=== PATIENT | female | born 1940 | race Caucasian/White ===

== ENCOUNTER 2020-05-02 11:29 | Inpatient (IN) ==
[2020-05-02] MEDS ORDERED: 0.9 % Sodium Chloride 1,000 ML IV ONE (11:48)
[2020-05-02 12:07] LABS: Basophils % 0.2 %; Eosinophils % 0.3 %; Hematocrit 32.6 % (35.3-44.9); Immature Granulocytes % 0.3 % (0-4); Lymphocytes # 1.1 K/mcL (0.6-4.6); Lymphocytes % 9.1 %; Mean Corpuscular HGB Conc 27.6 g/dL (31.6-35.5); Mean Corpuscular Hemoglobin 21.2 pg (28.0-33.3); Mean Corpuscular Volume 76.9 fL (83.0-100.0); Mean Platelet Volume 10.8 fL (9.4-12.4); Monocytes # 1.5 K/mcL (0.0-1.3); Monocytes % 12.3 %; Neutrophils # 9.2 K/mcL (1.6-8.9); Platelet Count 302 K/mcL (140-400); Red Blood Count 4.24 M/mcL (3.82-4.97); Red Cell Distribution Width 16.7 % (11.5-14.5); Segmented Neutrophils % 77.8 %; White Blood Count 11.8 K/mcL (4.3-11.1)
[2020-05-02 12:13] LABS: INR 1.1; Prothrombin Time 12.1 Seconds (9.4-12.1)
[2020-05-02 12:21] LABS: Alanine Aminotransferase 9 Units/L (7-52); Albumin 3.5 g/dL (3.5-5.7); Alkaline Phosphatase 58 Units/L (34-104); Aspartate Amino Transferase 9 Units/L (13-39); BUN/Creatinine Ratio 26 (6-26); Bilirubin,Total 0.2 mg/dL (0.3-1.0); Blood Urea Nitrogen 15 mg/dL (8-23); Carbon Dioxide 36 mEq/L (23-29); Chloride 94 mEq/L (98-107); Globulin 3.6 g/dL (2.4-3.5); Glucose 289 mg/dL (70-105); Magnesium 1.6 mg/dL (1.6-2.6); Osmolality,Calculated 293 (280-300); Potassium 4.4 mEq/L (3.5-5.1); Sodium 136 mEq/L (136-145); Total Protein 7.1 g/dL (6.4-8.9); eGFR For African Americans > 60 (> 60); eGFR For Non-African Americans > 60 (> 60)
[2020-05-02 12:23] LABS: Bilirubin,Urine Negative (Negative); Blood,Urine Negative (Negative); Clarity,Urine Clear (Clear); Color,Urine Yellow (Yellow); Glucose,Urine (UA) >=1000 mg/dL (Normal); Ketones,Urine Negative (Negative); Leukocyte Esterase,Urine Negative (Negative); Nitrite,Urine Negative (Negative); Protein,Urine 30 mg/dL (Neg-Trace); Specific Gravity,Urine >= 1.030 (1.010-1.025); Urobilinogen,Urine Normal (Normal)
[2020-05-02 12:24] LABS: Troponin I < 0.03 ng/mL (< 0.04)
[2020-05-02 12:37] LABS: Amorphous Sediment,Urine Moderate per hpf (None-Few); Bacteria,Urine Few per hpf (None-Few); Mucus,Urine Many per lpf (None-Few); Squamous Epithelial Cell,Urine Moderate per hpf (None-Few); WBC,Urine 0-3 per hpf (0-3)
[2020-05-02 12:42] LABS: Hypochromasia Present (Not Present); Microcytosis Present (Not Present)
[2020-05-02] MEDS ORDERED: Isovue-370 500 ML BOTTLE IVP ONE (12:45)
[2020-05-02] MEDS ORDERED: Furosemide 40 MG/4 ML VIAL IVP ONE (13:45)
[2020-05-02] MEDS ORDERED: Naloxone 0.4 MG/ML INJ IVP PRN (16:43)
[2020-05-02] MEDS ORDERED: Ondansetron 4 MG/2 ML VIAL IVP PRN (16:43)
[2020-05-02] MEDS ORDERED: *HR* Dextrose 50 % in Water (Vial) 50 ML VIAL IVP PRN (17:00)
[2020-05-02] MEDS ORDERED: Dextrose Gel 15 GM/37.5 ML TUBE PO PRN ×2 (17:00)
[2020-05-02] MEDS ORDERED: D5% in Water 1,000 ML IVC PRN (17:00)
[2020-05-02] MEDS ORDERED: Perflutren Lipid Microsphere 1.3 ML in 0.9 % Sodium Chloride 8.7 ML IVP PRN (17:07)
[2020-05-02] MEDS: cefTRIAXone 1,000 MG in 0.9 % Sodium Chloride Mini Bag 100 ML IVPB SCH (17:10)
[2020-05-02] MEDS: Insulin LISPRO 300 UNITS/3 ML VIAL SQ SCH (18:12)
[2020-05-02] MEDS: Azithromycin 500 MG in 0.9 % Sodium Chloride 250 ML IVPB SCH (18:13)
[2020-05-02] MEDS: Furosemide 20 MG/2 ML VIAL IVP SCH (18:16)
[2020-05-02] MEDS: Ipratropium/Albuterol Neb 3 ML IH PRN (19:09)
[2020-05-02] MEDS: Budesonide/Formoterol 160/4.5 1 PUFF INH IH SCH (19:10)
[2020-05-02 21:55] LABS: Estimated Average Glucose 214 mg/dl
[2020-05-03 06:51] LABS: Basophils % 0.2 %; Eosinophils # 0.1 K/mcL (0.0-0.6); Eosinophils % 0.9 %; Hematocrit 29.3 % (35.3-44.9); Hemoglobin 8.1 g/dL (11.5-15.4); Immature Granulocytes % 0.3 % (0-4); Lymphocytes # 1.5 K/mcL (0.6-4.6); Lymphocytes % 15.7 %; Mean Corpuscular HGB Conc 27.6 g/dL (31.6-35.5); Mean Corpuscular Hemoglobin 21.4 pg (28.0-33.3); Mean Corpuscular Volume 77.3 fL (83.0-100.0); Mean Platelet Volume 11.5 fL (9.4-12.4); Monocytes # 1.3 K/mcL (0.0-1.3); Monocytes % 13.5 %; Neutrophils # 6.7 K/mcL (1.6-8.9); Platelet Count 265 K/mcL (140-400); Red Blood Count 3.79 M/mcL (3.82-4.97); Red Cell Distribution Width 16.5 % (11.5-14.5); Segmented Neutrophils % 69.4 %; White Blood Count 9.7 K/mcL (4.3-11.1)
[2020-05-03 07:13] LABS: Alanine Aminotransferase 7 Units/L (7-52); Albumin 2.9 g/dL (3.5-5.7); Albumin/Globulin Ratio 0.9 (1.1-2.2); Alkaline Phosphatase 53 Units/L (34-104); Aspartate Amino Transferase 9 Units/L (13-39); BUN/Creatinine Ratio 28 (6-26); Bilirubin,Total 0.2 mg/dL (0.3-1.0); Blood Urea Nitrogen 13 mg/dL (8-23); Calcium 8.5 mg/dL (8.6-10.3); Carbon Dioxide 38 mEq/L (23-29); Chloride 96 mEq/L (98-107); Globulin 3.4 g/dL (2.4-3.5); Glucose 172 mg/dL (70-105); Magnesium 1.5 mg/dL (1.6-2.6); Osmolality,Calculated 292 (280-300); Sodium 139 mEq/L (136-145); Total Protein 6.3 g/dL (6.4-8.9); eGFR For African Americans > 60 (> 60); eGFR For Non-African Americans > 60 (> 60)
[2020-05-03 07:45] LABS: Hypochromasia Present (Not Present); Microcytosis Present (Not Present)
[2020-05-03] MEDS: Insulin LISPRO 300 UNITS/3 ML VIAL SQ SCH ×3 (09:00→17:17)
[2020-05-03] MEDS: Furosemide 20 MG/2 ML VIAL IVP SCH ×2 (09:00→16:18)
[2020-05-03] MEDS: MethylPREDNISolone 40 MG/ML VIAL IVP SCH ×2 (09:02→21:57)
[2020-05-03] MEDS: Budesonide/Formoterol 160/4.5 1 PUFF INH IH SCH ×2 (09:16→22:54)
[2020-05-03] MEDS: Ipratropium/Albuterol Neb 3 ML IH PRN (09:16)
[2020-05-03] MEDS: cefTRIAXone 1,000 MG in 0.9 % Sodium Chloride Mini Bag 100 ML IVPB SCH (16:21)
[2020-05-03] MEDS: Azithromycin 500 MG in 0.9 % Sodium Chloride 250 ML IVPB SCH (16:23)
[2020-05-03] MEDS: MOM Conc 10 ML UD.LIQ PO PRN (17:17)
[2020-05-04] MEDS: Furosemide 20 MG/2 ML VIAL IVP SCH (08:20)
[2020-05-04] MEDS: MethylPREDNISolone 40 MG/ML VIAL IVP SCH ×2 (08:20→21:10)
[2020-05-04] MEDS: Insulin LISPRO 300 UNITS/3 ML VIAL SQ SCH ×3 (08:21→16:51)
[2020-05-04 08:53] LABS: Hemoglobin 8.7 g/dL (11.5-15.4); Mean Corpuscular HGB Conc 27.2 g/dL (31.6-35.5); Mean Corpuscular Volume 77.3 fL (83.0-100.0); Mean Platelet Volume 10.8 fL (9.4-12.4); Platelet Count 322 K/mcL (140-400); Red Blood Count 4.14 M/mcL (3.82-4.97); Red Cell Distribution Width 16.5 % (11.5-14.5)
[2020-05-04] MEDS: Budesonide/Formoterol 160/4.5 1 PUFF INH IH SCH ×2 (09:06→22:56)
[2020-05-04 09:18] LABS: BUN/Creatinine Ratio 25 (6-26); Blood Urea Nitrogen 14 mg/dL (8-23); Calcium 8.9 mg/dL (8.6-10.3); Carbon Dioxide 43 mEq/L (23-29); Chloride 94 mEq/L (98-107); Glucose 261 mg/dL (70-105); Osmolality,Calculated 302 (280-300); Potassium 4.4 mEq/L (3.5-5.1); Sodium 141 mEq/L (136-145); eGFR For African Americans > 60 (> 60); eGFR For Non-African Americans > 60 (> 60)
[2020-05-04] MEDS: Acetaminophen 325 MG TABLET PO PRN (16:49)
[2020-05-04] MEDS: cefTRIAXone 1,000 MG in 0.9 % Sodium Chloride Mini Bag 100 ML IVPB SCH (16:50)
[2020-05-04] MEDS: Azithromycin 500 MG in 0.9 % Sodium Chloride 250 ML IVPB SCH (16:51)
[2020-05-04] MEDS: acetaZOLAMIDE 250 MG TABLET PO SCH (21:09)
[2020-05-05 06:33] LABS: Hemoglobin 8.4 g/dL (11.5-15.4); Mean Corpuscular HGB Conc 27.1 g/dL (31.6-35.5); Mean Corpuscular Hemoglobin 21.2 pg (28.0-33.3); Mean Corpuscular Volume 78.3 fL (83.0-100.0); Mean Platelet Volume 11.7 fL (9.4-12.4); Platelet Count 309 K/mcL (140-400); Red Blood Count 3.96 M/mcL (3.82-4.97); Red Cell Distribution Width 16.7 % (11.5-14.5); White Blood Count 10.4 K/mcL (4.3-11.1)
[2020-05-05 07:32] LABS: BUN/Creatinine Ratio 28 (6-26); Blood Urea Nitrogen 19 mg/dL (8-23); Carbon Dioxide 39 mEq/L (23-29); Chloride 97 mEq/L (98-107); Glucose 300 mg/dL (70-105); Osmolality,Calculated 303 (280-300); Potassium 4.8 mEq/L (3.5-5.1); Sodium 140 mEq/L (136-145); eGFR For African Americans > 60 (> 60); eGFR For Non-African Americans > 60 (> 60)
[2020-05-05] MEDS: MOM Conc 10 ML UD.LIQ PO PRN (08:00)
[2020-05-05] MEDS: MethylPREDNISolone 40 MG/ML VIAL IVP SCH (08:00)
[2020-05-05] MEDS: Acetaminophen 325 MG TABLET PO PRN (08:00)
[2020-05-05] MEDS: acetaZOLAMIDE 250 MG TABLET PO SCH ×2 (08:01→21:56)
[2020-05-05] MEDS: Insulin LISPRO 300 UNITS/3 ML VIAL SQ SCH ×4 (08:06→16:54)
[2020-05-05] MEDS ORDERED: Insulin DETEMIR 100 UNIT/ML X5UNITS SQ SCH (09:00)
[2020-05-05] MEDS: Budesonide/Formoterol 160/4.5 1 PUFF INH IH SCH ×2 (09:32→20:26)
[2020-05-05] MEDS: cefTRIAXone 1,000 MG in 0.9 % Sodium Chloride Mini Bag 100 ML IVPB SCH (17:06)
[2020-05-05] MEDS: Azithromycin 500 MG in 0.9 % Sodium Chloride 250 ML IVPB SCH (17:47)
[2020-05-05] MEDS: Insulin DETEMIR 100 UNIT/ML X5UNITS SQ SCH (21:56)
[2020-05-06 06:52] VITALS: BP 113/66
[2020-05-06] MEDS: Insulin LISPRO 300 UNITS/3 ML VIAL SQ SCH ×2 (07:38→11:14)
[2020-05-06] MEDS: MOM Conc 10 ML UD.LIQ PO PRN (07:43)
[2020-05-06] MEDS: acetaZOLAMIDE 250 MG TABLET PO SCH (07:43)
[2020-05-06 09:04] LABS: BUN/Creatinine Ratio 34 (6-26); Blood Urea Nitrogen 25 mg/dL (8-23); Calcium 9.5 mg/dL (8.6-10.3); Carbon Dioxide 39 mEq/L (23-29); Chloride 100 mEq/L (98-107); Glucose 149 mg/dL (70-105); Osmolality,Calculated 301 (280-300); Sodium 142 mEq/L (136-145); eGFR For African Americans > 60 (> 60); eGFR For Non-African Americans > 60 (> 60)
[2020-05-06] MEDS: Budesonide/Formoterol 160/4.5 1 PUFF INH IH SCH (10:21)
[2020-05-06] MEDS: Insulin DETEMIR 100 UNIT/ML X5UNITS SQ SCH (10:29)
== END 2020-05-06 12:55 | disposition other institution (70) | DRG 291 ==
LOC: EMEROOPIK 11:29 → INPPIK 11:29
PROVIDERS: ADMIT Family Medicine; ATTEND Family Medicine

== ENCOUNTER 2020-05-06 12:01 | Inpatient (IN) ==
[2020-05-06] MEDS ORDERED: *HR* Dextrose 50 % in Water (Vial) 50 ML VIAL IVP PRN (12:15)
[2020-05-06] MEDS ORDERED: D5% in Water 1,000 ML IVC PRN (12:15)
[2020-05-06] MEDS ORDERED: Dextrose Gel 15 GM/37.5 ML TUBE PO PRN ×2 (12:15)
[2020-05-06] MEDS ORDERED: Acetaminophen 325 MG TABLET PO PRN (12:17)
[2020-05-06] MEDS ORDERED: Ipratropium/Albuterol Neb 3 ML IH PRN (12:19)
[2020-05-06] MEDS ORDERED: MOM Conc 10 ML UD.LIQ PO PRN (12:22)
[2020-05-06] MEDS ORDERED: Ziprasidone 10 MG in Water for inj. (sterile) 0.5 ML IM ONE (14:23)
[2020-05-06] MEDS: Insulin LISPRO 300 UNITS/3 ML VIAL SQ SCH ×2 (16:53→20:24)
[2020-05-06] MEDS: Insulin DETEMIR 100 UNIT/ML X5UNITS SQ SCH (20:21)
[2020-05-06] MEDS: acetaZOLAMIDE 250 MG TABLET PO SCH (20:21)
[2020-05-06] MEDS: Budesonide/Formoterol 160/4.5 1 PUFF INH IH SCH (22:29)
[2020-05-07 07:18] LABS: Basophils % 0.3 %; Eosinophils # 0.2 K/mcL (0.0-0.6); Eosinophils % 1.3 %; Hematocrit 29.5 % (35.3-44.9); Immature Granulocytes % 0.3 % (0-4); Lymphocytes # 1.9 K/mcL (0.6-4.6); Lymphocytes % 16.1 %; Mean Corpuscular HGB Conc 27.1 g/dL (31.6-35.5); Mean Corpuscular Hemoglobin 21.2 pg (28.0-33.3); Mean Corpuscular Volume 78.2 fL (83.0-100.0); Mean Platelet Volume 10.9 fL (9.4-12.4); Monocytes # 1.6 K/mcL (0.0-1.3); Monocytes % 13.7 %; Neutrophils # 7.9 K/mcL (1.6-8.9); Platelet Count 288 K/mcL (140-400); Red Blood Count 3.77 M/mcL (3.82-4.97); Red Cell Distribution Width 16.9 % (11.5-14.5); Segmented Neutrophils % 68.3 %; White Blood Count 11.5 K/mcL (4.3-11.1)
[2020-05-07 07:40] LABS: BUN/Creatinine Ratio 41 (6-26); Blood Urea Nitrogen 26 mg/dL (8-23); Calcium 8.8 mg/dL (8.6-10.3); Carbon Dioxide 34 mEq/L (23-29); Chloride 102 mEq/L (98-107); Glucose 158 mg/dL (70-105); Osmolality,Calculated 300 (280-300); Potassium 4.1 mEq/L (3.5-5.1); Sodium 141 mEq/L (136-145); eGFR For African Americans > 60 (> 60); eGFR For Non-African Americans > 60 (> 60)
[2020-05-07] MEDS: acetaZOLAMIDE 250 MG TABLET PO SCH (07:49)
[2020-05-07] MEDS: Insulin LISPRO 300 UNITS/3 ML VIAL SQ SCH ×4 (07:54→20:08)
[2020-05-07 08:17] LABS: Hypochromasia Present (Not Present); Microcytosis Present (Not Present)
[2020-05-07] MEDS ORDERED: Azithromycin 250 MG TABLET PO SCH (09:00)
[2020-05-07] MEDS: Insulin DETEMIR 100 UNIT/ML X5UNITS SQ SCH ×2 (09:17→20:10)
[2020-05-07] MEDS: Budesonide/Formoterol 160/4.5 1 PUFF INH IH SCH ×2 (10:30→22:22)
[2020-05-07] MEDS: predniSONE 20 MG TABLET PO SCH (17:19)
[2020-05-08] MEDS: Budesonide/Formoterol 160/4.5 1 PUFF INH IH SCH ×2 (09:15→22:39)
[2020-05-08] MEDS: Insulin LISPRO 300 UNITS/3 ML VIAL SQ SCH ×4 (12:13→21:02)
[2020-05-08] MEDS: *HR* Pioglitazone 15 MG TABLET PO SCH ×2 (12:15→12:21)
[2020-05-08] MEDS: *HR* Metformin 500 MG TABLET PO SCH ×2 (12:15→12:20)
[2020-05-08] MEDS: Metoprolol XL (24 HR) Succ 25 MG TAB.ER.24H PO SCH (12:21)
[2020-05-08] MEDS: Aspirin Enteric Coated 81 MG Tablet PO SCH (12:21)
[2020-05-08] MEDS: Insulin DETEMIR 100 UNIT/ML X5UNITS SQ SCH ×2 (12:21→21:01)
[2020-05-08] MEDS: predniSONE 20 MG TABLET PO SCH (18:07)
[2020-05-08] MEDS ORDERED: GuaiFENesin/Dextromethorphan TABLET PO PRN (18:10)
[2020-05-09] MEDS: Insulin LISPRO 300 UNITS/3 ML VIAL SQ SCH ×4 (09:04→20:03)
[2020-05-09] MEDS: *HR* Metformin 500 MG TABLET PO SCH ×2 (09:07→16:43)
[2020-05-09] MEDS: Aspirin Enteric Coated 81 MG Tablet PO SCH (09:08)
[2020-05-09] MEDS: Metoprolol XL (24 HR) Succ 25 MG TAB.ER.24H PO SCH (09:08)
[2020-05-09] MEDS: predniSONE 20 MG TABLET PO SCH (09:08)
[2020-05-09] MEDS: *HR* Pioglitazone 15 MG TABLET PO SCH (09:09)
[2020-05-09] MEDS: Insulin DETEMIR 100 UNIT/ML X5UNITS SQ SCH ×2 (09:12→20:06)
[2020-05-09] MEDS: Budesonide/Formoterol 160/4.5 1 PUFF INH IH SCH ×2 (09:53→21:56)
[2020-05-10 07:09] VITALS: BP 103/58
[2020-05-10] MEDS: Insulin LISPRO 300 UNITS/3 ML VIAL SQ SCH (07:24)
[2020-05-10] MEDS: *HR* Metformin 500 MG TABLET PO SCH (09:11)
[2020-05-10] MEDS: predniSONE 20 MG TABLET PO SCH (09:12)
[2020-05-10] MEDS: Metoprolol XL (24 HR) Succ 25 MG TAB.ER.24H PO SCH (09:12)
[2020-05-10] MEDS: *HR* Pioglitazone 15 MG TABLET PO SCH (09:12)
[2020-05-10] MEDS: Aspirin Enteric Coated 81 MG Tablet PO SCH (09:13)
[2020-05-10] MEDS: Insulin DETEMIR 100 UNIT/ML X5UNITS SQ SCH (09:14)
[2020-05-10] MEDS: Budesonide/Formoterol 160/4.5 1 PUFF INH IH SCH (10:28)
[2020-05-11] MEDS ORDERED: predniSONE 10 MG TABLET PO SCH (09:00)
== END 2020-05-10 12:05 | disposition home health service (06) | DRG 190 ==
LOC: INPPIK 13:01
PROVIDERS: ADMIT Family Medicine; ATTEND Family Medicine

== ENCOUNTER 2020-09-12 01:35 | Inpatient (IN) ==
[2020-09-12] MEDS ORDERED: Furosemide 40 MG/4 ML VIAL IVP ONE (01:51)
[2020-09-12 02:19] LABS: Prothrombin Time 11.4 Seconds (9.4-12.1)
[2020-09-12 02:22] LABS: Activated Partial Thrombo Time 27.7 Seconds (26.0-36.0)
[2020-09-12 02:24] LABS: Bilirubin,Urine Negative (Negative); Blood,Urine Negative (Negative); Clarity,Urine Clear (Clear); Color,Urine Yellow (Yellow); Glucose,Urine (UA) 100 mg/dL (Normal); Ketones,Urine Trace mg/dL (Negative); Leukocyte Esterase,Urine Negative (Negative); Nitrite,Urine Negative (Negative); Protein,Urine Negative (Neg-Trace); Specific Gravity,Urine 1.025 (1.010-1.025); Urobilinogen,Urine Normal (Normal)
[2020-09-12 02:34] LABS: Alanine Aminotransferase 8 Units/L (7-52); Albumin 3.1 g/dL (3.5-5.7); Alkaline Phosphatase 67 Units/L (34-104); Aspartate Amino Transferase 9 Units/L (13-39); BUN/Creatinine Ratio 38 (6-26); Bilirubin,Indirect 0.2 mg/dL (0.0-1.0); Bilirubin,Total 0.2 mg/dL (0.3-1.0); Blood Urea Nitrogen 15 mg/dL (8-23); Calcium 8.4 mg/dL (8.6-10.3); Carbon Dioxide 41 mEq/L (23-29); Chloride 93 mEq/L (98-107); Globulin 3.2 g/dL (2.4-3.5); Glucose 250 mg/dL (70-105); Osmolality,Calculated 287 (280-300); Potassium 4.3 mEq/L (3.5-5.1); Sodium 134 mEq/L (136-145); Total Protein 6.3 g/dL (6.4-8.9); eGFR For African Americans > 60 (> 60); eGFR For Non-African Americans > 60 (> 60)
[2020-09-12 02:36] LABS: Basophils % 0.2 %; Eosinophils # 0.1 K/mcL (0.0-0.6); Eosinophils % 0.7 %; Hematocrit 24.6 % (35.3-44.9); Hemoglobin 6.4 g/dL (11.5-15.4); Immature Granulocytes % 1.3 % (0-4); Lymphocytes # 1.7 K/mcL (0.6-4.6); Lymphocytes % 13.5 %; Mean Corpuscular Hemoglobin 19.6 pg (28.0-33.3); Mean Corpuscular Volume 75.5 fL (83.0-100.0); Mean Platelet Volume 11.1 fL (9.4-12.4); Monocytes # 2.1 K/mcL (0.0-1.3); Monocytes % 16.4 %; Neutrophils # 8.7 K/mcL (1.6-8.9); Platelet Count 336 K/mcL (140-400); Red Blood Count 3.26 M/mcL (3.82-4.97); Red Cell Distribution Width 17.5 % (11.5-14.5); Segmented Neutrophils % 67.9 %; White Blood Count 12.8 K/mcL (4.3-11.1)
[2020-09-12 02:36] LABS: Budding Yeast,Urine Many per hpf (None Seen)
[2020-09-12] MEDS ORDERED: Isovue-370 500 ML BOTTLE IVP ONE (02:38)
[2020-09-12 02:41] LABS: ABG Base Excess 10 mEq/L (-2 to 3); ABG HCO3 41 mEq/L (21-27); ABG Oxygen Saturation 100 % (95-98); ABG PCO2 95 mmHg (35-45); ABG PH 7.24 pH Units (7.32-7.45); ABG PO2 354 mmHg (85-104); ABG TCO2 43 mEq/L (20-26)
[2020-09-12 03:11] LABS: Hypochromasia Present (Not Present); Platelet Estimate Increased (Normal)
[2020-09-12 03:26] LABS: Troponin I < 0.03 ng/mL (< 0.04)
[2020-09-12] MEDS ORDERED: Naloxone 0.4 MG/ML INJ IVP PRN (05:25)
[2020-09-12] MEDS ORDERED: Dextrose Gel 15 GM/37.5 ML TUBE PO PRN ×2 (05:25)
[2020-09-12] MEDS ORDERED: Mag Hydrox/Al Hydrox/Simeth 30 ML UDC PO PRN (05:25)
[2020-09-12] MEDS ORDERED: D5% in Water 1,000 ML IVC PRN (05:25)
[2020-09-12] MEDS ORDERED: MOM Conc 10 ML UD.LIQ PO PRN (05:25)
[2020-09-12] MEDS ORDERED: *HR* Dextrose 50 % in Water (Vial) 50 ML VIAL IVP PRN (05:25)
[2020-09-12] MEDS ORDERED: Ondansetron ODT 4 MG TAB.RAPDIS SL PRN (05:25)
[2020-09-12] MEDS ORDERED: Albuterol 2.5 MG/3 ML NEBULIZER IH PRN (05:25)
[2020-09-12] MEDS ORDERED: 0.9 % Sodium Chloride 250 ML ONE ×2 (06:16→10:06)
[2020-09-12] MEDS: Ipratropium/Albuterol Neb 3 ML IH SCH ×2 (06:42→15:45)
[2020-09-12] MEDS ORDERED: *HR* Pioglitazone 15 MG TABLET PO SCH (08:00)
[2020-09-12] MEDS ORDERED: Furosemide 20 MG/2 ML VIAL IVP ONE ×2 (09:00→18:53)
[2020-09-12] MEDS: Metoprolol XL (24 HR) Succ 25 MG TAB.ER.24H PO SCH (11:06)
[2020-09-12] MEDS: Empagliflozin [Jardiance] 10 MG PO SCH (11:07)
[2020-09-12] MEDS ORDERED: Acetaminophen 325 MG TABLET PO ONE (11:07)
[2020-09-12] MEDS: Aspirin Enteric Coated 81 MG Tablet PO SCH (11:08)
[2020-09-12] MEDS: Insulin LISPRO 300 UNITS/3 ML VIAL SQ SCH ×3 (11:08→12:16)
[2020-09-12] MEDS ORDERED: 0.9 % Sodium Chloride 250 ML IVC SCH (11:15)
[2020-09-12] MEDS: Budesonide/Formoterol 160/4.5 1 PUFF INH IH SCH ×2 (12:27→22:20)
[2020-09-12 17:17] LABS: Hematocrit 28.7 % (35.3-44.9); Hemoglobin 8.2 g/dL (11.5-15.4)
[2020-09-12 17:22] LABS: Iron < 10 mcg/dL (50-170); Transferrin 319 mg/dL (203-362)
[2020-09-12] MEDS: Insulin LISPRO 300 UNITS/3 ML VIAL SUBQ SCH (18:13)
[2020-09-12 19:05] LABS: ABG Base Excess 13 mEq/L (-2 to 3); ABG HCO3 40 mEq/L (21-27); ABG Oxygen Saturation 93 % (95-98); ABG PCO2 64 mmHg (35-45); ABG PH 7.41 pH Units (7.32-7.45); ABG PO2 71 mmHg (85-104); ABG TCO2 42 mEq/L (20-26); Blood Gas Pressure Support 16 cm H2O
[2020-09-12 21:37] LABS: Folate 19.5 ng/mL (3.0-16.0)
[2020-09-13] MEDS: Ipratropium/Albuterol Neb 3 ML IH SCH ×3 (00:27→15:38)
[2020-09-13] MEDS: Insulin LISPRO 300 UNITS/3 ML VIAL SUBQ SCH ×5 (02:15→20:50)
[2020-09-13 06:58] LABS: Basophils % 0.2 %; Eosinophils # 0.1 K/mcL (0.0-0.6); Eosinophils % 0.5 %; Hematocrit 28.3 % (35.3-44.9); Hemoglobin 8.1 g/dL (11.5-15.4); Immature Granulocytes % 0.4 % (0-4); Lymphocytes # 1.5 K/mcL (0.6-4.6); Lymphocytes % 13.3 %; Mean Corpuscular HGB Conc 28.6 g/dL (31.6-35.5); Mean Corpuscular Hemoglobin 21.8 pg (28.0-33.3); Mean Corpuscular Volume 76.3 fL (83.0-100.0); Mean Platelet Volume 11.3 fL (9.4-12.4); Monocytes # 2.3 K/mcL (0.0-1.3); Monocytes % 19.6 %; Platelet Count 304 K/mcL (140-400); Red Blood Count 3.71 M/mcL (3.82-4.97); White Blood Count 11.6 K/mcL (4.3-11.1)
[2020-09-13 07:16] LABS: Neutrophils # 7.7 K/mcL (1.6-8.9)
[2020-09-13 07:44] LABS: BUN/Creatinine Ratio 43 (6-26); Blood Urea Nitrogen 17 mg/dL (8-23); Calcium 8.4 mg/dL (8.6-10.3); Carbon Dioxide 41 mEq/L (23-29); Chloride 95 mEq/L (98-107); Glucose 86 mg/dL (70-105); Osmolality,Calculated 289 (280-300); Potassium 3.6 mEq/L (3.5-5.1); Sodium 139 mEq/L (136-145); eGFR For African Americans > 60 (> 60); eGFR For Non-African Americans > 60 (> 60)
[2020-09-13 08:27] LABS: Anisocytosis 2+ (Not Present); Hypochromasia Present (Not Present); Microcytosis Present (Not Present)
[2020-09-13 08:40] LABS: ABG Base Excess 11 mEq/L (-2 to 3); ABG HCO3 38 mEq/L (21-27); ABG Oxygen Saturation 95 % (95-98); ABG PCO2 58 mmHg (35-45); ABG PH 7.42 pH Units (7.32-7.45); ABG PO2 76 mmHg (85-104); ABG TCO2 39 mEq/L (20-26); Blood Gas Modality BiLevel
[2020-09-13] MEDS: Budesonide/Formoterol 160/4.5 1 PUFF INH IH SCH ×2 (08:51→20:04)
[2020-09-13] MEDS: Metoprolol XL (24 HR) Succ 25 MG TAB.ER.24H PO SCH (09:03)
[2020-09-13] MEDS: Furosemide 20 MG TABLET PO SCH (09:03)
[2020-09-13] MEDS: Empagliflozin [Jardiance] 10 MG PO SCH (09:03)
[2020-09-13] MEDS ORDERED: Ipratropium/Albuterol Neb 3 ML IH PRN (15:53)
[2020-09-14 07:56] LABS: Basophils % 0.3 %; Eosinophils # 0.1 K/mcL (0.0-0.6); Eosinophils % 0.5 %; Hematocrit 31.7 % (35.3-44.9); Hemoglobin 8.8 g/dL (11.5-15.4); Immature Granulocytes % 0.3 % (0-4); Lymphocytes # 1.1 K/mcL (0.6-4.6); Lymphocytes % 11.4 %; Mean Corpuscular HGB Conc 27.8 g/dL (31.6-35.5); Mean Corpuscular Hemoglobin 21.6 pg (28.0-33.3); Mean Corpuscular Volume 77.9 fL (83.0-100.0); Mean Platelet Volume 10.8 fL (9.4-12.4); Monocytes # 1.6 K/mcL (0.0-1.3); Monocytes % 17.2 %; Neutrophils # 6.6 K/mcL (1.6-8.9); Platelet Count 307 K/mcL (140-400); Red Blood Count 4.07 M/mcL (3.82-4.97); Red Cell Distribution Width 20.4 % (11.5-14.5); Segmented Neutrophils % 70.3 %; White Blood Count 9.4 K/mcL (4.3-11.1)
[2020-09-14 08:09] LABS: BUN/Creatinine Ratio 36 (6-26); Blood Urea Nitrogen 15 mg/dL (8-23); Calcium 8.3 mg/dL (8.6-10.3); Carbon Dioxide 38 mEq/L (23-29); Chloride 96 mEq/L (98-107); Glucose 157 mg/dL (70-105); Osmolality,Calculated 290 (280-300); Potassium 3.6 mEq/L (3.5-5.1); Sodium 138 mEq/L (136-145); eGFR For African Americans > 60 (> 60); eGFR For Non-African Americans > 60 (> 60)
[2020-09-14] MEDS: Budesonide/Formoterol 160/4.5 1 PUFF INH IH SCH ×2 (08:55→20:00)
[2020-09-14 09:03] LABS: Anisocytosis 2+ (Not Present); Hypochromasia Present (Not Present); Microcytosis Present (Not Present)
[2020-09-14] MEDS ORDERED: Perflutren Lipid Microsphere 1.3 ML in 0.9 % Sodium Chloride 8.7 ML IVP PRN (09:34)
[2020-09-14] MEDS: Metoprolol XL (24 HR) Succ 25 MG TAB.ER.24H PO SCH (10:03)
[2020-09-14] MEDS: cefTRIAXone 1,000 MG in 0.9 % Sodium Chloride Mini Bag 100 ML IVPB SCH (10:03)
[2020-09-14] MEDS: Aspirin Enteric Coated 81 MG Tablet PO SCH (10:04)
[2020-09-14] MEDS: Cyanocobalamin (B-12) 1,000 MCG TABLET PO SCH (10:04)
[2020-09-14] MEDS: Insulin LISPRO 300 UNITS/3 ML VIAL SUBQ SCH ×4 (10:04→20:17)
[2020-09-14] MEDS: Empagliflozin [Jardiance] 10 MG PO SCH (10:12)
[2020-09-14 10:31] LABS: ABG Base Excess 9 mEq/L (-2 to 3); ABG HCO3 37 mEq/L (21-27); ABG Oxygen Saturation 88 % (95-98); ABG PCO2 63 mmHg (35-45); ABG PH 7.37 pH Units (7.32-7.45); ABG PO2 58 mmHg (85-104); ABG TCO2 39 mEq/L (20-26)
[2020-09-14] MEDS: Furosemide 20 MG/2 ML VIAL IVP SCH ×2 (10:45→17:28)
[2020-09-14] MEDS: MethylPREDNISolone 40 MG/ML VIAL IVP SCH ×2 (10:45→17:28)
[2020-09-14 14:19] LABS: Adenovirus Not Detected (Not Detect); Bordetella Pertussis Not Detected (Not Detect); Chlamydophila pneumoniae Not Detected (Not Detect); Coronavirus 229E Not Detected (Not Detect); Coronavirus HKU1 Not Detected (Not Detect); Coronavirus NL63 Not Detected (Not Detect); Coronavirus OC43 Not Detected (Not Detect); Human Metapneumovirus Not Detected (Not Detect); Human Rhinovirus/Enterovirus Not Detected (Not Detect); Influenza A Subtype 2009 H1 Not Detected (Not Detect); Influenza B Not Detected (Not Detect); Mycoplasma pneumoniae Not Detected (Not Detect); Parainfluenza Virus 1 Not Detected (Not Detect); Parainfluenza Virus 2 Not Detected (Not Detect); Parainfluenza Virus 3 Not Detected (Not Detect); Parainfluenza Virus 4 Not Detected (Not Detect); Respiratory Syncytial Virus Not Detected (Not Detect); SARS-CoV-2 Not Detected (Not Detect)
[2020-09-15] MEDS: MethylPREDNISolone 40 MG/ML VIAL IVP SCH ×2 (05:47→16:41)
[2020-09-15] MEDS: Budesonide/Formoterol 160/4.5 1 PUFF INH IH SCH ×2 (07:23→20:48)
[2020-09-15 08:14] LABS: Basophils % 0.1 %; Hemoglobin 9.1 g/dL (11.5-15.4); Immature Granulocytes % 0.5 % (0-4); Lymphocytes # 0.9 K/mcL (0.6-4.6); Lymphocytes % 10.5 %; Mean Corpuscular HGB Conc 28.4 g/dL (31.6-35.5); Mean Corpuscular Hemoglobin 21.7 pg (28.0-33.3); Mean Corpuscular Volume 76.4 fL (83.0-100.0); Mean Platelet Volume 10.9 fL (9.4-12.4); Monocytes # 0.6 K/mcL (0.0-1.3); Monocytes % 7.1 %; Neutrophils # 7.2 K/mcL (1.6-8.9); Platelet Count 356 K/mcL (140-400); Red Blood Count 4.19 M/mcL (3.82-4.97); Segmented Neutrophils % 81.8 %; White Blood Count 8.8 K/mcL (4.3-11.1)
[2020-09-15 08:27] LABS: BUN/Creatinine Ratio 34 (6-26); Blood Urea Nitrogen 15 mg/dL (8-23); Calcium 8.8 mg/dL (8.6-10.3); Carbon Dioxide 37 mEq/L (23-29); Chloride 95 mEq/L (98-107); Glucose 205 mg/dL (70-105); Osmolality,Calculated 293 (280-300); Potassium 3.8 mEq/L (3.5-5.1); Sodium 138 mEq/L (136-145); eGFR For African Americans > 60 (> 60); eGFR For Non-African Americans > 60 (> 60)
[2020-09-15] MEDS: cefTRIAXone 1,000 MG in 0.9 % Sodium Chloride Mini Bag 100 ML IVPB SCH (08:27)
[2020-09-15] MEDS: Furosemide 20 MG/2 ML VIAL IVP SCH ×2 (08:30→16:42)
[2020-09-15] MEDS: Metoprolol XL (24 HR) Succ 25 MG TAB.ER.24H PO SCH (08:31)
[2020-09-15] MEDS: Cyanocobalamin (B-12) 1,000 MCG TABLET PO SCH (08:31)
[2020-09-15] MEDS: Aspirin Enteric Coated 81 MG Tablet PO SCH (08:31)
[2020-09-15] MEDS: Insulin LISPRO 300 UNITS/3 ML VIAL SUBQ SCH ×3 (08:32→16:41)
[2020-09-15] MEDS: Empagliflozin [Jardiance] 10 MG PO SCH (08:32)
[2020-09-15] MEDS: Furosemide 20 MG TABLET PO SCH (09:54)
[2020-09-15] MEDS ORDERED: Insulin LISPRO 300 UNITS/3 ML VIAL SUBQ SCH (12:08)
[2020-09-16] MEDS: MethylPREDNISolone 40 MG/ML VIAL IVP SCH ×2 (05:16→16:58)
[2020-09-16 06:39] LABS: Basophils % 0.1 %; Eosinophils % 0.2 %; Hematocrit 31.3 % (35.3-44.9); Hemoglobin 8.7 g/dL (11.5-15.4); Immature Granulocytes % 0.3 % (0-4); Lymphocytes # 1.9 K/mcL (0.6-4.6); Lymphocytes % 19.7 %; Mean Corpuscular HGB Conc 27.8 g/dL (31.6-35.5); Mean Corpuscular Hemoglobin 21.9 pg (28.0-33.3); Mean Corpuscular Volume 78.6 fL (83.0-100.0); Mean Platelet Volume 10.8 fL (9.4-12.4); Monocytes # 1.4 K/mcL (0.0-1.3); Monocytes % 14.4 %; Neutrophils # 6.4 K/mcL (1.6-8.9); Platelet Count 344 K/mcL (140-400); Red Blood Count 3.98 M/mcL (3.82-4.97); Red Cell Distribution Width 20.5 % (11.5-14.5); Segmented Neutrophils % 65.3 %; White Blood Count 9.9 K/mcL (4.3-11.1)
[2020-09-16 07:08] LABS: BUN/Creatinine Ratio 40 (6-26); Blood Urea Nitrogen 19 mg/dL (8-23); Calcium 8.7 mg/dL (8.6-10.3); Chloride 95 mEq/L (98-107); Glucose 149 mg/dL (70-105); Osmolality,Calculated 293 (280-300); Sodium 139 mEq/L (136-145); eGFR For African Americans > 60 (> 60); eGFR For Non-African Americans > 60 (> 60)
[2020-09-16 07:11] LABS: Carbon Dioxide 41 mEq/L (23-29)
[2020-09-16 07:13] LABS: Anisocytosis 1+ (Not Present); Hypochromasia Present (Not Present); Microcytosis Present (Not Present)
[2020-09-16 07:14] LABS: Ovalocytes 1+ (Not Present); Platelet Estimate Normal (Normal); Polychromasia 1+ (Not Present)
[2020-09-16] MEDS: Budesonide/Formoterol 160/4.5 1 PUFF INH IH SCH (08:08)
[2020-09-16] MEDS: cefTRIAXone 1,000 MG in 0.9 % Sodium Chloride Mini Bag 100 ML IVPB SCH (09:32)
[2020-09-16] MEDS: Insulin LISPRO 300 UNITS/3 ML VIAL SUBQ SCH ×3 (09:33→16:56)
[2020-09-16] MEDS: Aspirin Enteric Coated 81 MG Tablet PO SCH (09:36)
[2020-09-16] MEDS: Metoprolol XL (24 HR) Succ 25 MG TAB.ER.24H PO SCH (09:36)
[2020-09-16] MEDS: Cyanocobalamin (B-12) 1,000 MCG TABLET PO SCH (09:37)
[2020-09-16] MEDS: Empagliflozin [Jardiance] 10 MG PO SCH (09:39)
[2020-09-16 10:18] VITALS: BP 133/75
[2020-09-16] MEDS: Furosemide 20 MG/2 ML VIAL IVP SCH ×2 (10:32→16:58)
== END 2020-09-16 18:28 | disposition other institution (70) | DRG 291 ==
LOC: INPPIK 01:35 → EMEROOPIK 01:35 → INPPIK 05:10
PROVIDERS: ADMIT Family Medicine; ATTEND Family Medicine

== ENCOUNTER 2020-09-15 19:01 | Inpatient (IN) ==
[2020-09-16] MEDS: Ipratropium/Albuterol Neb 3 ML IH SCH ×2 (19:15→23:04)
[2020-09-16] MEDS ORDERED: *HR* Dextrose 50 % in Water (Vial) 50 ML VIAL IVP PRN (19:37)
[2020-09-16] MEDS ORDERED: Dextrose Gel 15 GM/37.5 ML TUBE PO PRN ×2 (19:37)
[2020-09-16] MEDS ORDERED: D5% in Water 1,000 ML IVC PRN (19:37)
[2020-09-16] MEDS: Insulin LISPRO 300 UNITS/3 ML VIAL SUBQ SCH (20:42)
[2020-09-16] MEDS: Budesonide/Formoterol 160/4.5 1 PUFF INH IH SCH (23:03)
[2020-09-17 07:08] LABS: Basophils % 0.2 %; Eosinophils % 0.2 %; Hemoglobin 8.5 g/dL (11.5-15.4); Immature Granulocytes % 0.4 % (0-4); Lymphocytes # 2.1 K/mcL (0.6-4.6); Lymphocytes % 19.3 %; Mean Corpuscular HGB Conc 27.4 g/dL (31.6-35.5); Mean Corpuscular Hemoglobin 21.6 pg (28.0-33.3); Mean Corpuscular Volume 78.7 fL (83.0-100.0); Mean Platelet Volume 11.1 fL (9.4-12.4); Monocytes # 1.7 K/mcL (0.0-1.3); Monocytes % 15.2 %; Platelet Count 340 K/mcL (140-400); Red Blood Count 3.94 M/mcL (3.82-4.97); Red Cell Distribution Width 20.9 % (11.5-14.5); Segmented Neutrophils % 64.7 %; White Blood Count 10.8 K/mcL (4.3-11.1)
[2020-09-17] MEDS: Ipratropium/Albuterol Neb 3 ML IH SCH ×3 (07:18→23:00)
[2020-09-17] MEDS: Budesonide/Formoterol 160/4.5 1 PUFF INH IH SCH ×2 (07:18→23:00)
[2020-09-17 07:41] LABS: BUN/Creatinine Ratio 47 (6-26); Blood Urea Nitrogen 22 mg/dL (8-23); Calcium 8.6 mg/dL (8.6-10.3); Carbon Dioxide 42 mEq/L (23-29); Chloride 95 mEq/L (98-107); Glucose 202 mg/dL (70-105); Osmolality,Calculated 299 (280-300); Potassium 3.5 mEq/L (3.5-5.1); Sodium 140 mEq/L (136-145); eGFR For African Americans > 60 (> 60); eGFR For Non-African Americans > 60 (> 60)
[2020-09-17] MEDS ORDERED: *HR* Pioglitazone 45 MG TABLET PO SCH (08:00)
[2020-09-17 08:09] LABS: Anisocytosis 2+ (Not Present); Hypochromasia Present (Not Present); Microcytosis Present (Not Present)
[2020-09-17] MEDS: Aspirin Enteric Coated 81 MG Tablet PO SCH (08:56)
[2020-09-17] MEDS: cefTRIAXone 1,000 MG in 0.9 % Sodium Chloride Mini Bag 100 ML IVPB SCH (08:56)
[2020-09-17] MEDS: Metoprolol XL (24 HR) Succ 25 MG TAB.ER.24H PO SCH (08:56)
[2020-09-17] MEDS: Cyanocobalamin (B-12) 1,000 MCG TABLET PO SCH (08:56)
[2020-09-17] MEDS: predniSONE 20 MG TABLET PO SCH (08:57)
[2020-09-17] MEDS: (Empagliflozin [Jardiance] 10 MG) PO SCH (08:57)
[2020-09-17] MEDS: Furosemide 20 MG TABLET PO SCH (08:57)
[2020-09-17] MEDS: *HR* Metformin 500 MG TABLET PO SCH (08:57)
[2020-09-17] MEDS: Insulin LISPRO 300 UNITS/3 ML VIAL SUBQ SCH ×4 (08:58→20:07)
[2020-09-17] MEDS ORDERED: CefTRIAXone 1,000 MG VIAL IVPB SCH (09:00)
[2020-09-17] MEDS: *HR* Pioglitazone 15 MG TABLET PO SCH (09:11)
[2020-09-18] MEDS: Insulin LISPRO 300 UNITS/3 ML VIAL SUBQ SCH ×4 (07:39→22:16)
[2020-09-18] MEDS: Aspirin Enteric Coated 81 MG Tablet PO SCH (07:54)
[2020-09-18] MEDS: Metoprolol XL (24 HR) Succ 25 MG TAB.ER.24H PO SCH (07:54)
[2020-09-18] MEDS: predniSONE 20 MG TABLET PO SCH (07:54)
[2020-09-18] MEDS: Cyanocobalamin (B-12) 1,000 MCG TABLET PO SCH (07:54)
[2020-09-18] MEDS: Furosemide 20 MG TABLET PO SCH (07:54)
[2020-09-18] MEDS: cefTRIAXone 1,000 MG in 0.9 % Sodium Chloride Mini Bag 100 ML IVPB SCH (07:55)
[2020-09-18] MEDS: *HR* Metformin 500 MG TABLET PO SCH (07:55)
[2020-09-18] MEDS: (Empagliflozin [Jardiance] 10 MG) PO SCH (07:55)
[2020-09-18] MEDS: *HR* Pioglitazone 15 MG TABLET PO SCH (07:55)
[2020-09-18] MEDS: Budesonide/Formoterol 160/4.5 1 PUFF INH IH SCH ×2 (08:23→20:49)
[2020-09-18] MEDS: Ipratropium/Albuterol Neb 3 ML IH SCH ×3 (08:23→20:49)
[2020-09-18 08:54] LABS: Basophils % 0.3 %; Eosinophils # 0.1 K/mcL (0.0-0.6); Eosinophils % 1.3 %; Hematocrit 32.7 % (35.3-44.9); Immature Granulocytes % 0.5 % (0-4); Lymphocytes # 2.1 K/mcL (0.6-4.6); Lymphocytes % 20.2 %; Mean Corpuscular HGB Conc 27.5 g/dL (31.6-35.5); Mean Corpuscular Hemoglobin 21.7 pg (28.0-33.3); Mean Platelet Volume 10.9 fL (9.4-12.4); Monocytes # 1.8 K/mcL (0.0-1.3); Neutrophils # 6.3 K/mcL (1.6-8.9); Platelet Count 353 K/mcL (140-400); Red Blood Count 4.14 M/mcL (3.82-4.97); Red Cell Distribution Width 21.4 % (11.5-14.5); Segmented Neutrophils % 60.7 %; White Blood Count 10.4 K/mcL (4.3-11.1)
[2020-09-18 09:08] LABS: BUN/Creatinine Ratio 46 (6-26); Blood Urea Nitrogen 24 mg/dL (8-23); Calcium 8.5 mg/dL (8.6-10.3); Carbon Dioxide 37 mEq/L (23-29); Chloride 96 mEq/L (98-107); Glucose 186 mg/dL (70-105); Osmolality,Calculated 297 (280-300); Potassium 3.8 mEq/L (3.5-5.1); Sodium 139 mEq/L (136-145); eGFR For African Americans > 60 (> 60); eGFR For Non-African Americans > 60 (> 60)
[2020-09-18 09:28] LABS: Anisocytosis 2+ (Not Present); Hypochromasia Present (Not Present); Microcytosis Present (Not Present)
[2020-09-18] MEDS: Azithromycin 250 MG TABLET PO SCH (11:50)
[2020-09-18] MEDS: Sennosides/Docusate Sodium TABLET PO SCH (22:14)
[2020-09-19 07:32] VITALS: BP 123/63
[2020-09-19] MEDS: Budesonide/Formoterol 160/4.5 1 PUFF INH IH SCH (07:44)
[2020-09-19] MEDS: Ipratropium/Albuterol Neb 3 ML IH SCH (07:44)
[2020-09-19] MEDS: (Empagliflozin [Jardiance] 10 MG) PO SCH (09:23)
[2020-09-19] MEDS: *HR* Metformin 500 MG TABLET PO SCH (09:23)
[2020-09-19] MEDS: Aspirin Enteric Coated 81 MG Tablet PO SCH (09:24)
[2020-09-19] MEDS: Sennosides/Docusate Sodium TABLET PO SCH (09:24)
[2020-09-19] MEDS: Cyanocobalamin (B-12) 1,000 MCG TABLET PO SCH (09:24)
[2020-09-19] MEDS: predniSONE 20 MG TABLET PO SCH (09:24)
[2020-09-19] MEDS: Furosemide 20 MG TABLET PO SCH (09:24)
[2020-09-19] MEDS: Metoprolol XL (24 HR) Succ 25 MG TAB.ER.24H PO SCH (09:24)
[2020-09-19] MEDS: *HR* Pioglitazone 15 MG TABLET PO SCH (09:24)
[2020-09-19] MEDS: Insulin LISPRO 300 UNITS/3 ML VIAL SUBQ SCH ×2 (09:25→13:09)
[2020-09-19] MEDS: Azithromycin 250 MG TABLET PO SCH (13:09)
== END 2020-09-19 16:20 | disposition hospice, home (50) | DRG 189 ==
LOC: INPPIK 09-16 18:42
PROVIDERS: ADMIT Family Medicine; ATTEND Family Medicine